=== PATIENT | female | born 1945 | race Caucasian/White ===

== ENCOUNTER 2023-08-01 13:47 | Outpatient (RCR) | payer MEDICARE, OTHER, SELFPAY | END 2023-08-01 23:59 | disposition home or self-care (01) | LOC: RPT 13:47 | PROVIDERS: ATTENDING PHYSICIAN Physical Medicine & Rehabilitation; PRIMARYCARE PHYSICIAN Internal Medicine | DX: S72.011D Unspecified intracapsular fracture of right femur, subsequent encounter for closed fracture with routine healing (principal); R26.2 Difficulty in walking, not elsewhere classified; Z96.641 Presence of right artificial hip joint; Z73.6 Limitation of activities due to disability | CPT/HCPCS: 97110; 97112; 97116; 97530 ==

== ENCOUNTER 2023-09-05 13:01 | Outpatient (RCR) | payer MEDICARE, OTHER, SELFPAY | END 2023-09-05 23:59 | disposition home or self-care (01) | LOC: RPT 13:01 | PROVIDERS: ATTENDING PHYSICIAN Physical Medicine & Rehabilitation; PRIMARYCARE PHYSICIAN Internal Medicine | DX: S72.011D Unspecified intracapsular fracture of right femur, subsequent encounter for closed fracture with routine healing (principal); R26.2 Difficulty in walking, not elsewhere classified; Z96.641 Presence of right artificial hip joint; Z73.6 Limitation of activities due to disability | CPT/HCPCS: 97110; 97112; 97116; 97530 ==

== ENCOUNTER → 2023-10-18 12:40 | Outpatient (REF) | payer MEDICARE, OTHER, SELFPAY | LOC: HWRAD 12:40 | PROVIDERS: ATTENDING PHYSICIAN Nurse Practitioner; FAMILY PHYSICIAN Family Medicine | DX: N39.0 Urinary tract infection, site not specified (principal) | CPT/HCPCS: 76770; 76856 ==

== ENCOUNTER → 2024-02-07 17:24 | Outpatient (REF) | payer MEDICARE, OTHER, SELFPAY ==
[2024-02-07 17:54] LABS: Urine Albumin Negative (Neg - Trace); Urine Bilirubin Negative (Negative); Urine Character Clear (Clear); Urine Color Yellow; Urine Glucose Negative (Negative); Urine Ketone Negative (Negative); Urine Leukocyte Negative (Negative); Urine Nitrite Negative (Negative); Urine Occult Blood Negative (Negative); Urine Specific Gravity 1.005 (<1.030); Urine Urobilinogen Negative (Neg - 1+)
== END ==
LOC: CLAB 17:24
PROVIDERS: ATTENDING PHYSICIAN Obstetrics & Gynecology
DX: N39.0 Urinary tract infection, site not specified (principal)
CPT/HCPCS: 36415; 81003; 87086

== ENCOUNTER → 2024-02-14 08:29 | Outpatient (REF) | payer MEDICARE, OTHER, SELFPAY | LOC: CLAB 08:29 | PROVIDERS: ATTENDING PHYSICIAN Obstetrics & Gynecology | DX: N39.0 Urinary tract infection, site not specified (principal) | CPT/HCPCS: 87086 ==

== ENCOUNTER → 2024-02-27 08:42 | Outpatient (REF) | payer MEDICARE, OTHER, SELFPAY | LOC: RAD 08:42 | PROVIDERS: ATTENDING PHYSICIAN Obstetrics & Gynecology; FAMILY PHYSICIAN Family Medicine | DX: R10.2 Pelvic and perineal pain (principal) | CPT/HCPCS: 76830; 76856 ==

== ENCOUNTER 2024-03-03 14:13 | Outpatient (RCR) | payer MEDICARE, OTHER, SELFPAY | END 2024-03-07 13:23 | disposition home or self-care (01) | LOC: RPT 14:13 | PROVIDERS: ATTENDING PHYSICIAN Family Medicine | DX: K59.09 Other constipation (principal); S72.001D Fracture of unspecified part of neck of right femur, subsequent encounter for closed fracture with routine healing (principal); E03.9 Hypothyroidism, unspecified; R26.89 Other abnormalities of gait and mobility; Z73.6 Limitation of activities due to disability | CPT/HCPCS: 36415; 84443; 97110; 97112; 97162 ==

== ENCOUNTER → 2024-03-10 07:51 | Outpatient (REF) | payer MEDICARE, OTHER, SELFPAY ==
[2024-03-10 10:06] LABS: % Basophils 0.8 % (0-2); % Eosinophils 2.7 % (0-6); % Immature Granulocytes 0.5 % (0-0.5); % Lymphocytes 15.6 % (20.5-51.1); % Monocytes 8.8 % (1.7-9.3); % Neutrophils 71.6 % (42.2-75.2); Absolute Basophils 0.1 10^3/uL (0-0.2); Absolute Eosinophils 0.2 10^3/uL (0-0.7); Absolute Monocytes 0.6 10^3/uL (0.1-0.6); Absolute Neutrophils 4.6 10^3/uL (1.4-6.5); Hemoglobin 12.7 g/dL (12.0-16.0); Mean Corp Hgb Conc. 33.4 g/dL (33.0-37.0); Mean Corpuscular Hgb 29.4 pg (27.0-31.0); Nucleated Red Blood Cells % 0 %; Platelet Count 172 10^3/uL (130-400); Red Blood Cell Count 4.32 10^6/uL (4.20-5.40); Red Cell Dist. Width 13.8 % (11.5-14.5); White Blood Cell Count 6.4 10^3/uL (4.8-10.8)
[2024-03-10 10:20] LABS: ALT (SGPT) 26 U/L (0-35); AST (SGOT) 36 U/L (14-36); Alkaline Phosphatase 82 U/L (38-126); Blood Urea Nitrogen 16 mg/dl (7-17); Calcium 9.6 mg/dl (8.4-10.2); Carbon Dioxide 30 mmol/L (22-30); Chloride 103 mmol/L (98-107); Glucose 92 mg/dl (70-99); HDL Cholesterol 65 mg/dl; Iron 99 ug/dl (37-170); LDL Cholesterol, Calculated 140 mg/dl; Potassium 4.1 mmol/L (3.5-5.1); Sodium 141 mmol/L (135-145); Total Bilirubin 0.9 mg/dl (0.2-1.3); Total Cholesterol 226 mg/dl (50-199); Total Protein 6.7 g/dl (6.3-8.2); Triglyceride 106 mg/dl (10-149); Very Low Density Lipoprotein 21 mg/dl (0-30); eGFR > 60.00
[2024-03-10 10:30] LABS: Percent Saturation 26 % (20-50); Total Iron Binding Capacity 374 ug/dl (265-497)
[2024-03-10 10:52] LABS: TSH Reflex To Free T4 2.11 uIU/ml (0.47-4.68)
[2024-03-10 10:55] LABS: Ferritin 23.5 ng/ml (11.1-264.0)
== END ==
LOC: REG 07:51
PROVIDERS: ATTENDING PHYSICIAN Family Medicine
DX: D50.9 Iron deficiency anemia, unspecified (principal); Z13.1 Encounter for screening for diabetes mellitus; Z13.6 Encounter for screening for cardiovascular disorders; Z13.29 Encounter for screening for other suspected endocrine disorder; E83.42 Hypomagnesemia; R06.89 Other abnormalities of breathing
CPT/HCPCS: 36415; 80053; 80061; 82728; 83540; 83550; 84443; 85025

== ENCOUNTER → 2024-03-23 15:09 | Outpatient (REF) | payer MEDICARE, OTHER, SELFPAY ==
[2024-03-23 16:46] LABS: ALT (SGPT) 27 U/L (0-35); AST (SGOT) 33 U/L (14-36); Alkaline Phosphatase 74 U/L (38-126); Blood Urea Nitrogen 26 mg/dl (7-17); Calcium 9.7 mg/dl (8.4-10.2); Carbon Dioxide 29 mmol/L (22-30); Chloride 102 mmol/L (98-107); Glucose 80 mg/dl (70-99); Potassium 4.3 mmol/L (3.5-5.1); Sodium 143 mmol/L (135-145); Total Bilirubin 0.7 mg/dl (0.2-1.3); Total Protein 6.6 g/dl (6.3-8.2); eGFR > 60.00
== END ==
LOC: REG 15:09
PROVIDERS: ATTENDING PHYSICIAN Internal Medicine Cardiovascular Disease; FAMILY PHYSICIAN Family Medicine
DX: I47.20 Ventricular tachycardia, unspecified (principal)
CPT/HCPCS: 36415; 80053

== ENCOUNTER 2024-03-25 11:53 | Outpatient (RCR) | payer MEDICARE, OTHER, SELFPAY | END 2024-03-25 23:59 | disposition home or self-care (01) | LOC: RPT 11:53 | PROVIDERS: ATTENDING PHYSICIAN Family Medicine | DX: R10.2 Pelvic and perineal pain (principal); Z73.6 Limitation of activities due to disability; M19.90 Unspecified osteoarthritis, unspecified site; Z87.440 Personal history of urinary (tract) infections | CPT/HCPCS: 97110; 97112; 97116 ==

== ENCOUNTER 2024-04-01 11:57 | Outpatient (RCR) | payer MEDICARE, OTHER, SELFPAY | END 2024-04-01 23:59 | disposition home or self-care (01) | LOC: RPT 11:57 | PROVIDERS: ATTENDING PHYSICIAN Obstetrics & Gynecology; FAMILY PHYSICIAN Family Medicine | DX: R10.2 Pelvic and perineal pain (principal); Z73.6 Limitation of activities due to disability; M62.81 Muscle weakness (generalized); Z87.440 Personal history of urinary (tract) infections | CPT/HCPCS: 97110; 97112; 97162; 97530 ==

== ENCOUNTER 2024-04-13 09:09 | Inpatient (IN) | payer MEDICARE, OTHER, SELFPAY ==
[2024-04-13] VITALS (9 sets, daily range): BP systolic 124–183; BP diastolic 72–97; BMI 25.8
--- NOTE | 2024-04-13 09:30 | PTCARENOTE ---
Pt arrived to unit, AOx3 no complaints of pain or discomfort. Assist x1 with cane. Oriented to room and unit. SB on tele monitor. Mali Santana NP at bedside. Call wiggins within reach.
--- NOTE | 2024-04-13 09:39 | W.PN.CD ---
Addendum entered and electronically signed by Gio Baird MD (Ellie) 04/13/24 13:52:
I saw and examined the patient.
The PACK WORKER's note was reviewed and I agree with the note.
Comment: 79 yo female with VT s/p DC [employer] ICD, HTN, RBBB, moderate mitral regurgitation and reduction in DLCO on Amiodarone, who is here for initiation of Sotalol. She feels well today other than headache in the setting of increased blood
pressure. She is now on lisinopril 10 mg daily for hypertension as an outpatient but prior to hip surgery last year, she was on lisinopril 40 mg daily and amlodipine. On exam she is hypertensive with blood pressure in the 150s to 160s over 70s to
80s; she reports that home blood pressures are 140 systolics. Cardiovascular exam notable for regular rate and rhythm with no murmurs rubs or gallops. Lungs are clear to auscultation bilaterally. No pedal edema. ECG shows sinus bradycardia with
first-degree AV block and a heart rate in the 50s, occasional PVCs, QTc 466 ms. Labs are pending.
In summary, this is a 79-year-old female with a history of VT and hypertension here for sotalol initiation. We will wait for her electrolytes to result from the lab and replete as needed. Once electrolytes are replete, she will get 1 dose of
sotalol 80 mg with ECG 2 hours after dose. If QT acceptable, we can initiate sotalol 80 mg twice daily. For her hypertension, blood pressures have been elevated here and she may need more antihypertensives given her previous requirement. For now,
continue home lisinopril 10 mg daily. If blood pressure remains elevated, will increase to lisinopril 20 mg daily tomorrow. Continue home propranolol 60 mg daily.
Original Note:
Today's Communication / Plan
-
initiate Sotalol and monitor on tele.
Impression / Plan
-
This is the H&P summary - full H&P scanned into her chart.
Mrs. Stinson is a 79 yo female with VT s/p DC [employer] ICD, HTN, RBBB, moderate mitral regurgitation and reduction in DLCO on Amiodarone, who is here for initiation of Sotalol. She stopped Amiodarone 100mg daily, [address] Nunez
recommended she stop Amiodarone due to reduced DLCO and other side effects from chronic Amiodarone (ambulatory/gait issues, eye and mentation issues). She reports feeling well and denies any cardiac complaints today.
VT - stable on chronic Amiodarone 100mg daily but with reduction in DLCO and other side effects from Amiodarone.
- plan to initiate Sotalol. she stopped Amiodarone 2 days ago as instructed by Dr. Nunez.
- check EKG now and after each Sotalol dose.
- check labs for appropriate Sotalol dosing.
- she has ICD in place.
- also on Propranolol ER 60mg daily, took it this am.
ICD - dual chamber, [employer].
- no discharges.
- followed in our outpatient device clinic.
HTN - chronic.
- she states her PCP started Lisinopril 10mg daily recently.
- will continue and monitor.
Mitral regurgitation - moderate on recent echo.
- no HF symptoms.
Physical Exam
Vital Signs/Labs
Vital Signs
Temp Resp BP Pulse Ox
97.7 F 20 159/78 98
04/13/24 09:29 04/13/24 09:29 04/13/24 09:24 04/13/24 09:29
04/12/24 04/13/24 04/14/24
06:59 06:59 06:59
Actual Weight 145 lb 11.609 oz
Physical Exam
Constitutional: No acute distress and Comfortable
EENT: Anicteric and Moist mucous membranes
Cardiovascular: Rhythm & rate is regular
Respiratory: Respiratory effort normal
GI: Soft, Non tender and Normal bowel sounds
Neuro/Psych: AO x 3
Other: Skin (warm, dry)
Data Reviewed
-
Date of Service: April 13, 2024
Medical Decision Making: Reviewed Test Results
EKG: Ordered by me
Echo: Report Reviewed by me
Labs: Labs Reviewed by me
Old Records: Reviewed
--- NOTE | 2024-04-13 11:13 | CM ---
Reviewed chart. Met with and Mrs. Stinson to review discharge plans. She states prior to admission she resides with her spouse in a one story home with one step to enter. She states prior to admission she ambulates with a rollator or single
point cane. She states she has a rollator and single point cane at home. She states she has a prescription plan and uses [facility]. Medical work-up in progress. The discharge plan is to return home with her spouse when medically stable.
[2024-04-13 12:00] LABS: Hematocrit 35.2 % (37.0-47.0); Hemoglobin 11.8 g/dL (12.0-16.0); Mean Corp Hgb Conc. 33.5 g/dL (33.0-37.0); Mean Corpuscular Hgb 29.1 pg (27.0-31.0); Mean Corpuscular Volume 86.9 fL (81.0-99.0); Mean Platelet Volume 11.3 fL (7.4-10.4); Platelet Count 155 10^3/uL (130-400); Red Blood Cell Count 4.05 10^6/uL (4.20-5.40); Red Cell Dist. Width 13.6 % (11.5-14.5); White Blood Cell Count 6.4 10^3/uL (4.8-10.8)
[2024-04-13] MEDS: TYLENOL 650 MG PO (13:35)
[2024-04-13 14:14] LABS: Blood Urea Nitrogen 18 mg/dl (7-17); Calcium 8.9 mg/dl (8.4-10.2); Carbon Dioxide 27 mmol/L (22-30); Chloride 105 mmol/L (98-107); Estimated Creatinine Clearance 63 ml/min; Glucose 107 mg/dl (70-99); Potassium 3.3 mmol/L (3.5-5.1); Sodium 142 mmol/L (135-145); eGFR > 60.00
[2024-04-13] MEDS: ZESTRIL 10 MG PO (14:25)
[2024-04-13] MEDS: KCL 40 MEQ PO (15:07)
[2024-04-13] MEDS: BETAPACE 80 MG PO (16:27)
[2024-04-13] MEDS: LOVENOX 40 MG SC (17:12)
[2024-04-13] MEDS: HIPREX 1 GRAM PO (20:01)
--- NOTE | 2024-04-13 20:48 | PTCARENOTE ---
Pt. received at change of shift. Pt. seen and assessed in room. at the pt's bedside. Pt. AOx3, VS WNL. No complaints of pain at this time. RN educates patient on plan of care, pt. verbalizes understanding. Call wiggins within reach. Continuing
to monitor at this time.
[2024-04-14] VITALS (7 sets, daily range): BP systolic 140–176; BP diastolic 75–105; BMI 25.8
--- NOTE | 2024-04-14 07:54 | W.PN.CD ---
Today's Communication / Plan
-
- Stop Propranolol
- Continue loading with Sotalol 80 mg BID
- Can program the ICD to pace atrially faster to shorten the QTc if needed.
Impression / Plan
-
This is the H&P summary - full H&P scanned into her chart.
Mrs. Stinson is a 79 yo female with VT s/p DC [employer] ICD, HTN, RBBB, moderate mitral regurgitation and reduction in DLCO on Amiodarone, who is here for initiation of Sotalol. She stopped Amiodarone 100mg daily, [address] Nunez
recommended she stop Amiodarone due to reduced DLCO and other side effects from chronic Amiodarone (ambulatory/gait issues, eye and mentation issues).
VT - stable on chronic Amiodarone 100mg daily but with reduction in DLCO and other side effects from Amiodarone.
- plan to initiate Sotalol. she stopped Amiodarone 2 days ago prior to hospitalization.
- check EKG now and after each Sotalol dose.
- check labs for appropriate Sotalol dosing.
- she has ICD in place - dual chamber
- Will stop Propranolol ER 60mg - Will replace with Sotalol 80 mg BID
- First dose given on 04/13/24 - EKG post sotalol is stable.
- On Lexapro - 5 mg - Maintenance dose. Will continue. Any increase in dose would need EKG monitoring
ICD - dual chamber, [employer].
- no discharges.
- followed in our outpatient device clinic.
HTN - chronic.
- she states her PCP started Lisinopril 10mg daily recently.
- will continue and monitor.
Mitral regurgitation - moderate on recent echo.
- no HF symptoms.
Physical Exam
Vital Signs/Labs
Vital Signs
Temp Pulse Resp BP Pulse Ox
97.6 F 59 16 140/88 97
04/14/24 04:11 04/14/24 04:11 04/14/24 04:11 04/14/24 04:11 04/14/24 04:11
04/13/24 04/14/24 04/15/24
06:59 06:59 06:59
Actual Weight 66.1 kg
04/13/24 11:32
04/13/24 13:23
Physical Exam
Constitutional: No acute distress and Comfortable
EENT: Anicteric and Moist mucous membranes
Cardiovascular: Rhythm & rate is regular, Pedal edema is absent and JVD pressure is normal
Respiratory: Respiratory effort normal, Lungs clear to auscul., Wheeze Absent and Crackles Absent
GI: Soft, Distention absent, Non tender and Normal bowel sounds
Neuro/Psych: Alert, Oriented and AO x 3
Data Reviewed
-
Date of Service: April 14, 2024
Medical Decision Making: Reviewed Test Results, Tests Ordered, Independent Historian Assessment, Test Interpretation and Review of Case with other Provider
EKG: Tracing Personally Visualized and interpreted
Echo: Report Reviewed by me
Labs: Labs Reviewed by me
Old Records: Reviewed
[2024-04-14] MEDS: LEXAPRO 5 MG PO (08:15)
[2024-04-14] MEDS: ZESTRIL 20 MG PO (08:15)
[2024-04-14] MEDS: HIPREX 1 GRAM PO ×2 (08:15→19:13)
[2024-04-14] MEDS: BETAPACE 80 MG PO ×2 (08:57→19:13)
--- NOTE | 2024-04-14 10:24 | PTCARENOTE ---
Sotalol dose #2 given. EKG at 1100, VSS, call wiggins in reach
--- NOTE | 2024-04-14 12:32 | CM ---
Reviewed chart. Met with and Mrs. Stinson to review discharge plans. She states she is feeling about the same. Prior to admission she resides with her spouse in a one story home with one step to enter. Prior to admission she ambulates with a
rolling walker or single point cane. She has a prescripton plan and uses [facility]. Medical work-up in progress. The discharge plan is to return home with her spouse when medically stable.
[2024-04-14] MEDS: LOVENOX 40 MG SC (17:48)
--- NOTE | 2024-04-14 21:07 | PTCARENOTE ---
Pt. received at change of shift. Pt. seen and assessed in room with at bedside. AOx3, tele reading sinus derek with underlying AV pacing. Patient with no complaints at this time. 3rd does of sotalol administered, awaiting to do EKG post
administration. RN explained plan of care to patient. Pt. verbalizes understanding of care. Call wiggins within reach. Continuing to monitor at this time.
[2024-04-15] VITALS (7 sets, daily range): BP systolic 131–174; BP diastolic 63–92; BMI 25.8
[2024-04-15] MEDS: LEXAPRO 5 MG PO (07:50)
[2024-04-15] MEDS: HIPREX 1 GRAM PO ×2 (07:50→19:26)
[2024-04-15] MEDS: ZESTRIL 20 MG PO (07:51)
[2024-04-15] MEDS: BETAPACE 80 MG PO ×2 (07:51→19:57)
--- NOTE | 2024-04-15 09:15 | W.PN.CD ---
Today's Communication / Plan
-
2 more doses of Sotalol prior to discharge
Continue Sotalol 80mg BID. ECG stable.
Impression / Plan
-
This is the H&P summary - full H&P scanned into her chart.
Mrs. Stinson is a 79 yo female with VT s/p DC [employer] ICD, HTN, RBBB, moderate mitral regurgitation and reduction in DLCO on Amiodarone, who is here for initiation of Sotalol. She stopped Amiodarone 100mg daily, [address] Nunez
recommended she stop Amiodarone due to reduced DLCO and other side effects from chronic Amiodarone (ambulatory/gait issues, eye and mentation issues).
VT - stable on chronic Amiodarone 100mg daily but with reduction in DLCO and other side effects from Amiodarone.
- plan to initiate Sotalol. she stopped Amiodarone 2 days ago prior to hospitalization.
- check EKG now and after each Sotalol dose.
- check labs for appropriate Sotalol dosing.
- she has ICD in place - dual chamber
- Will stop Propranolol ER 60mg - Will replace with Sotalol 80 mg BID
- First dose given on 04/13/24 - EKG post sotalol is stable.
- On Lexapro - 5 mg - Maintenance dose. Will continue. Any increase in dose would need EKG monitoring
ICD - dual chamber, [employer].
- no discharges.
- followed in our outpatient device clinic.
HTN - chronic.
- she states her PCP started Lisinopril 10mg daily recently.
- will continue and monitor.
Mitral regurgitation - moderate on recent echo.
- no HF symptoms.
Subjective: Feels well. Has headache and slightly dizziness for a short time after she takes Sotalol. Otherwise no new complaints
Physical Exam
Vital Signs/Labs
Vital Signs
Temp Pulse Resp BP Pulse Ox
97.7 F 56 18 167/92 95
04/15/24 08:00 04/15/24 08:30 04/15/24 08:00 04/15/24 07:51 04/15/24 08:00
04/14/24 04/15/24 04/16/24
06:59 06:59 06:59
Actual Weight 66.1 kg 66 kg
04/13/24 11:32
04/13/24 13:23
Physical Exam
Constitutional: No acute distress and Comfortable
Cardiovascular: Rhythm & rate is regular, Pedal edema is absent, JVD pressure is normal and Murmur/rub/gallop absent
Respiratory: Respiratory effort normal and Lungs clear to auscul.
Data Reviewed
-
Date of Service: April 15, 2024
Medical Decision Making: Reviewed Test Results, Tests Ordered, Independent Historian Assessment, Test Interpretation and Review of Case with other Provider
EKG: Tracing Personally Visualized and interpreted
Echo: Report Reviewed by me
Labs: Labs Reviewed by me
Old Records: Reviewed
--- NOTE | 2024-04-15 09:40 | PTCARENOTE ---
Rec'd pt this shift awake and alert in bed. Pt V-paced on monitor. RA. AM meds given. Pt denies pain, denies sob. See worklist for VS/I and O and assessments.
--- NOTE | 2024-04-15 10:16 | PTCARENOTE ---
Dr. Nunez notified of QT results two hour post 4th dose of Sotolol.
--- NOTE | 2024-04-15 10:28 | CM ---
Reviewed chart. Met with Mrs. Stinson to review discharge plans. She states she maybe able to go home soon. She sates she is feeling very cold today. Prior to admission she resides with her spouse in a one story home with one step to enter. Prior
to admission she ambulates with a single point cane or walker. She has a prescription plan and uses [facility]. Medical work-up in progress. The discharge plan is to return home with her spouse when medically stable.
[2024-04-15] MEDS: TYLENOL 650 MG PO (11:27)
--- NOTE | 2024-04-15 12:43 | PTCARENOTE ---
Pt c/o H/A. Tylenol given. BP improved and H/A improved after Tylenol given. Dr. Baird notified and aware.
--- NOTE | 2024-04-15 13:39 | PTCARENOTE ---
Dr. Baird notified of H/A and pt c/o chills and just not feeling right. Covid and Flu sent.
[2024-04-15 13:52] LABS: COVID-19 Antigen Negative (Negative)
[2024-04-15] MEDS: LOVENOX 40 MG SC (16:23)
--- NOTE | 2024-04-15 23:32 | PTCARENOTE ---
Pt received start of shift. HR SB/SR w/ 1st degree AV block, occasional a-pacing, and BBB. Pt w/ family at bedside. Reinforced purpose of sotalol and why we are checking EKG after dose. Pt states understanding. Sotalol dose #5 administered, QTc 533.
[2024-04-16] VITALS (12 sets, daily range): BP systolic 122–201; BP diastolic 75–107; BMI 25.6
--- NOTE | 2024-04-16 07:34 | W.PN.CD ---
Today's Communication / Plan
-
- Replace K and recheck.
- Keep telemetry overnight.
Impression / Plan
-
This is the H&P summary - full H&P scanned into her chart.
Mrs. Stinson is a 79 yo female with VT s/p DC [employer] ICD, HTN, RBBB, moderate mitral regurgitation and reduction in DLCO on Amiodarone, who is here for initiation of Sotalol. She stopped Amiodarone 100mg daily, [address] Nunez
recommended she stop Amiodarone due to reduced DLCO and other side effects from chronic Amiodarone (ambulatory/gait issues, eye and mentation issues).
VT - stable on chronic Amiodarone 100mg daily but with reduction in DLCO and other side effects from Amiodarone.
- Continue loading Sotalol. she stopped Amiodarone 2 days ago prior to hospitalization.
- check EKG now and after each Sotalol dose.
- check labs for appropriate Sotalol dosing. Hypokalemia - replace and recheck lytes.
- she has ICD in place - dual chamber
- Stopped Propranolol ER 60mg and Amiodarone - replaced with Sotalol 80 mg BID
- First dose given on 04/13/24 - EKG post sotalol is stable.
- On Lexapro - 5 mg - Maintenance dose. Will continue. Any increase in dose would need EKG monitoring
- Prolonged QTc is due to Hypokalemia and u wave - replace K and repeat K/
- Keep overnight for K replacement.
ICD - dual chamber, [employer].
- no discharges.
- followed in our outpatient device clinic.
HTN - chronic.
- she states her PCP started Lisinopril 10mg daily recently.
- will continue and monitor.
Mitral regurgitation - moderate on recent echo.
- no HF symptoms.
Subjective: Feels well. Otherwise no new complaints.
Physical Exam
Vital Signs/Labs
Vital Signs
Temp Pulse Resp BP Pulse Ox
98.6 F 59 16 158/97 96
04/16/24 03:58 04/16/24 03:58 04/16/24 03:58 04/16/24 03:58 04/16/24 03:58
04/15/24 04/16/24 04/17/24
06:59 06:59 06:59
Actual Weight 66 kg 65.5 kg
04/13/24 11:32
Physical Exam
Constitutional: No acute distress and Comfortable
EENT: Anicteric and Moist mucous membranes
Cardiovascular: Rhythm & rate is regular, Pedal edema is absent, JVD pressure is normal and Systolic murmur absent
Respiratory: Respiratory effort normal, Lungs clear to auscul., Wheeze Absent and Crackles Absent
GI: Soft, Flat, Non tender and Normal bowel sounds
Neuro/Psych: Alert, Oriented and AO x 3
Other: Cardiac Device Site
Data Reviewed
-
Date of Service: April 16, 2024
Medical Decision Making: Reviewed Test Results, Tests Ordered, Independent Historian Assessment, Test Interpretation and Review of Case with other Provider
EKG: Tracing Personally Visualized and interpreted
Echo: Report Reviewed by me
Labs: Labs Reviewed by me
Old Records: Reviewed
[2024-04-16] MEDS: KCL 40 MEQ PO ×2 (07:41→20:24)
[2024-04-16] MEDS: ZESTRIL 20 MG PO (07:42)
[2024-04-16] MEDS: LEXAPRO 5 MG PO (07:42)
[2024-04-16] MEDS: BETAPACE 80 MG PO ×2 (07:42→20:24)
[2024-04-16] MEDS: HIPREX 1 GRAM PO ×2 (07:42→20:24)
--- NOTE | 2024-04-16 08:00 | PTCARENOTE ---
Patient with no complaints this morning. Left IV site tender and swollen, warm compress applied and IV removed. BMP collected, 40 MEQ of K-DUR PO given, call wiggins in reach
[2024-04-16] MEDS: KCL PO (08:40)
[2024-04-16 10:29] LABS: Blood Urea Nitrogen 14 mg/dl (7-17); Calcium 9.1 mg/dl (8.4-10.2); Carbon Dioxide 28 mmol/L (22-30); Chloride 104 mmol/L (98-107); Estimated Creatinine Clearance 63 ml/min; Glucose 93 mg/dl (70-99); Potassium 4.1 mmol/L (3.5-5.1); Sodium 140 mmol/L (135-145); eGFR > 60.00
--- NOTE | 2024-04-16 15:47 | PTCARENOTE ---
Patient comfortable, resting in bed, awakens easily. Warm compress applied to left forearm. New IV placed in right forearm. VSS, call wiggins in reach
[2024-04-16] MEDS: LOVENOX 40 MG SC (17:44)
[2024-04-16] MEDS: APRESOLINE 5 MG IV (23:07)
--- NOTE | 2024-04-17 00:30 | PTCARENOTE ---
Pt received start of shift, HR SR 1st degree AV block + occasional a-pacing + BBB + PVCs + Prolonged QT. 7th dose of sotalol administered to pt.
Pt BP elevated SBP 180-200. Spoke w/ CV NETWORK TECHNOLOGY INSTRUCTOR Moises 5mg hydralazine IV administered. SBP 163/94.
[2024-04-17 02:09] VITALS: BP 164/101
[2024-04-17 03:16] LABS: Blood Urea Nitrogen 14 mg/dl (7-17); Calcium 9.4 mg/dl (8.4-10.2); Carbon Dioxide 24 mmol/L (22-30); Chloride 107 mmol/L (98-107); Estimated Creatinine Clearance 63 ml/min; Glucose 109 mg/dl (70-99); Potassium 4.9 mmol/L (3.5-5.1); Sodium 142 mmol/L (135-145); eGFR > 60.00
[2024-04-17 07:24] VITALS: BP 143/72
[2024-04-17 07:53] VITALS: BP 183/86
[2024-04-17] MEDS: ZESTRIL 20 MG PO (07:58)
[2024-04-17] MEDS: BETAPACE 80 MG PO (07:58)
[2024-04-17] MEDS: HIPREX 1 GRAM PO (07:58)
[2024-04-17] MEDS: LEXAPRO 5 MG PO (07:59)
[2024-04-17] MEDS: NORVASC 5 MG PO (08:53)
--- NOTE | 2024-04-17 09:12 | W.PN.CD ---
Today's Communication / Plan
-
- Patient received 6th dose of sotalol last evening, and EKGs have been stable; received 7th dose this a.m.--check EKG 2 hours post, then discharge to home.
-Will add Norvasc 5 mg daily and continue to manage as outpatient.
Impression / Plan
-
This is the H&P summary - full H&P scanned into her chart.
Mrs. Stinson is a 79 yo female with VT s/p DC [employer] ICD, HTN, RBBB, moderate mitral regurgitation and reduction in DLCO on Amiodarone, who is here for initiation of Sotalol. She stopped Amiodarone 100mg daily, [address] Nunez
recommended she stop Amiodarone due to reduced DLCO and other side effects from chronic Amiodarone (ambulatory/gait issues, eye and mentation issues).
VT - stable on chronic Amiodarone 100mg daily but with reduction in DLCO and other side effects from Amiodarone.
- Continue loading Sotalol. she stopped Amiodarone 2 days ago prior to hospitalization.
- she has ICD in place - dual chamber
- Stopped Propranolol ER 60mg and Amiodarone - replaced with Sotalol 80 mg BID
- First dose given on 04/13/24 - EKG post sotalol is stable.
- On Lexapro - 5 mg - Maintenance dose. Will continue. Any increase in dose would need EKG monitoring
- Prolonged QTc was due to Hypokalemia and u wave - replaced K+.
- Patient received 6th dose of sotalol last evening, and EKGs have been stable; received 7th dose this a.m.--check EKG 2 hours post, then discharge to home.
ICD - dual chamber, [employer].
- no discharges.
- followed in our outpatient device clinic.
HTN - chronic.
-Blood pressure has been suboptimally controlled.
-Continue lisinopril 20 mg daily.
-Will add Norvasc 5 mg daily and continue to manage as outpatient.
Mitral regurgitation - moderate on recent echo.
- no HF symptoms.
Subjective: No major events overnight. No cardiac complaints this a.m.
Physical Exam
Vital Signs/Labs
Vital Signs
Temp Pulse Resp BP Pulse Ox
98.5 F 59 20 183/86 97
04/17/24 07:53 04/17/24 08:00 04/17/24 07:53 04/17/24 07:53 04/17/24 07:53
04/16/24 04/17/24 04/18/24
06:59 06:59 06:59
Actual Weight 65.5 kg
04/13/24 11:32
04/17/24 02:39
Physical Exam
Constitutional: No acute distress and Comfortable
EENT: Anicteric
Cardiovascular: Rhythm & rate is regular, Pedal edema is absent, Systolic murmur absent and S1S2 is normal
Respiratory: Respiratory effort normal and Lungs clear to auscul.
GI: Soft
Neuro/Psych: AO x 3
Other: Skin (Warm, dry, intact)
Data Reviewed
-
Date of Service: April 17, 2024
EKG: Tracing Personally Visualized and interpreted (Telemetry: Sinus rhythm, PACs)
Labs: Labs Reviewed by me
[2024-04-17] MEDS: KCL PO (09:51)
[2024-04-17 10:17] VITALS: BP 99/64
[2024-04-17 10:18] VITALS: BP 104/62
[2024-04-17 10:19] VITALS: BP 107/96
--- NOTE | 2024-04-17 10:31 | CM ---
Reviewed chart. Met with and Mrs. Stinson to review discharge plans. She states she is feeling better and maybe able to go home soon. We reviewed [facility] and she is declining services at this time. Prior to admission she resides with her
spouse in a one story home with one step to enter. Prior to admission she uses a waker or single point cane to ambulate. She has a walker and single point cane at home. She has a prescription plan and uses [facility] . Medical work-up in
progress. The discharge plan is to return home with her spouse when medically stable.
--- NOTE | 2024-04-17 11:14 | W.DS.TRANS ---
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
-
Discharge Instructions:
Discharge Diagnosis/Procedures Sotalol initiation for management of ventricular
tachycardia
Diet 2 Gram Sodium
Activity As tolerated
Driving Restrictions As prior to admission
Bathing Restrictions OK to Shower
Blood Work BMP in one week
Instructions:
Stand-Alone Forms:
Changes to Home Medications: Yes
Discharge Medications:
DC Medications w/original date entered in [facility]
cranberry 500 mg capsule 500 mg PO DAILY Supplement 02/22/23
escitalopram oxalate 5 mg/5 mL oral solution 5 mg (5 mL) PO DAILY Mental Health/Anxiety #30 mL 03/08/23
methenamine hippurate 1 gram tablet 1 g PO BID 04/13/24
amlodipine 5 mg tablet 5 mg PO DAILY #30 tabs 04/17/24
lisinopril 20 mg tablet 20 mg PO DAILY #30 tabs 04/17/24
potassium chloride 20 mEq tablet,extended release 40 meq (2 x 20 mEq) PO DAILY #60 tabs 04/17/24
sotalol 80 mg tablet 80 mg PO Q12H #60 tabs 04/17/24
Home Medication Changes
Lisinopril was increased to 20mg daily.
Sotalol, Norvasc and KCL are new.
Propranolol was stopped.
Pending Results: No
== END 2024-04-17 13:15 | disposition home or self-care (01) | DRG 310 ==
LOC: IVU 09:09
PROVIDERS: Student in an Organized Health Care Education/Training Program; ADMITTING PHYSICIAN Internal Medicine Cardiovascular Disease
DX: I47.20 Ventricular tachycardia, unspecified (principal); I10 Essential (primary) hypertension; I34.0 Nonrheumatic mitral (valve) insufficiency; Z11.52 Encounter for screening for COVID-19
CPT/HCPCS: 80048; 85027; 87502; 87811; 93005

== ENCOUNTER → 2024-04-23 07:13 | Outpatient (REF) | payer MEDICARE, OTHER, SELFPAY ==
[2024-04-23 10:37] LABS: Blood Urea Nitrogen 22 mg/dl (7-17); Calcium 9.3 mg/dl (8.4-10.2); Carbon Dioxide 28 mmol/L (22-30); Chloride 102 mmol/L (98-107); Glucose 80 mg/dl (70-99); Potassium 4.3 mmol/L (3.5-5.1); Sodium 144 mmol/L (135-145); eGFR > 60.00
== END ==
LOC: REG 07:13
PROVIDERS: ATTENDING PHYSICIAN Nurse Practitioner; FAMILY PHYSICIAN Family Medicine
DX: E87.6 Hypokalemia (principal)
CPT/HCPCS: 36415; 80048

== ENCOUNTER 2024-05-04 12:47 | Outpatient (RCR) | payer MEDICARE, OTHER, SELFPAY | END 2024-05-04 23:59 | disposition home or self-care (01) | LOC: RPT 12:47 | PROVIDERS: ATTENDING PHYSICIAN Family Medicine | DX: S72.001D Fracture of unspecified part of neck of right femur, subsequent encounter for closed fracture with routine healing (principal); K59.09 Other constipation (principal); Z73.6 Limitation of activities due to disability; E03.9 Hypothyroidism, unspecified | CPT/HCPCS: 97110; 97112; 97164; 97530 ==

== ENCOUNTER → 2024-05-20 11:15 | Outpatient (REF) | payer MEDICARE, OTHER, SELFPAY | LOC: RCS 11:15 | PROVIDERS: ATTENDING PHYSICIAN Nurse Practitioner; FAMILY PHYSICIAN Family Medicine | DX: I47.20 Ventricular tachycardia, unspecified (principal); E87.6 Hypokalemia; I10 Essential (primary) hypertension; I34.0 Nonrheumatic mitral (valve) insufficiency | CPT/HCPCS: 93306 ==

== ENCOUNTER → 2024-06-02 10:51 | Outpatient (REF) | payer MEDICARE, OTHER, SELFPAY ==
[2024-06-02 13:06] LABS: Blood Urea Nitrogen 18 mg/dl (7-17); Calcium 9.5 mg/dl (8.4-10.2); Carbon Dioxide 30 mmol/L (22-30); Chloride 103 mmol/L (98-107); Glucose 71 mg/dl (70-99); Magnesium 2.1 mg/dl (1.6-2.3); Sodium 142 mmol/L (135-145); eGFR > 60.00
[2024-06-02 13:12] LABS: Potassium 4.7 mmol/L (3.5-5.1)
== END ==
LOC: REG 10:51
PROVIDERS: ATTENDING PHYSICIAN Nurse Practitioner; FAMILY PHYSICIAN Family Medicine
DX: I47.20 Ventricular tachycardia, unspecified (principal); E87.6 Hypokalemia; I10 Essential (primary) hypertension
CPT/HCPCS: 36415; 80048; 83735

== ENCOUNTER → 2024-07-04 08:12 | Outpatient (REF) | payer MEDICARE, OTHER, SELFPAY ==
[2024-07-04 09:34] LABS: ALT (SGPT) 31 U/L (0-35); AST (SGOT) 37 U/L (14-36); Albumin 3.9 g/dl (3.5-5.0); Alkaline Phosphatase 70 U/L (38-126); Blood Urea Nitrogen 22 mg/dl (7-17); Calcium 9.1 mg/dl (8.4-10.2); Carbon Dioxide 31 mmol/L (22-30); Chloride 101 mmol/L (98-107); Glucose 90 mg/dl (70-99); HDL Cholesterol 66 mg/dl; LDL Cholesterol, Calculated 142 mg/dl; Potassium 3.7 mmol/L (3.5-5.1); Sodium 138 mmol/L (135-145); Total Bilirubin 0.7 mg/dl (0.2-1.3); Total Cholesterol 230 mg/dl (50-199); Total Protein 6.5 g/dl (6.3-8.2); Triglyceride 110 mg/dl (10-149); Very Low Density Lipoprotein 22 mg/dl (0-30); eGFR > 60.00
[2024-07-04 09:39] LABS: % Basophils 0.2 % (0-2); % Eosinophils 3.9 % (0-6); % Immature Granulocytes 0.4 % (0-0.5); % Lymphocytes 19.8 % (20.5-51.1); % Monocytes 9.5 % (1.7-9.3); % Neutrophils 66.2 % (42.2-75.2); Absolute Eosinophils 0.2 10^3/uL (0-0.7); Absolute Monocytes 0.5 10^3/uL (0.1-0.6); Absolute Neutrophils 3.4 10^3/uL (1.4-6.5); Hematocrit 39.5 % (37.0-47.0); Hemoglobin 13.1 g/dL (12.0-16.0); Mean Corp Hgb Conc. 33.2 g/dL (33.0-37.0); Mean Corpuscular Volume 90.6 fL (81.0-99.0); Mean Platelet Volume 11.2 fL (7.4-10.4); Nucleated Red Blood Cells % 0 %; Platelet Count 129 10^3/uL (130-400); Red Blood Cell Count 4.36 10^6/uL (4.20-5.40); Red Cell Dist. Width 13.4 % (11.5-14.5); White Blood Cell Count 5.2 10^3/uL (4.8-10.8)
[2024-07-04 10:08] LABS: Ferritin 29.3 ng/ml (11.1-264.0)
== END ==
LOC: REG 08:12
PROVIDERS: ATTENDING PHYSICIAN Family Medicine
DX: E78.2 Mixed hyperlipidemia (principal); D50.9 Iron deficiency anemia, unspecified; E83.42 Hypomagnesemia
CPT/HCPCS: 36415; 80053; 80061; 82728; 83735; 85025

== ENCOUNTER 2024-08-19 13:56 | Emergency (ER) | payer MEDICARE, OTHER, SELFPAY ==
[2024-08-19 13:58] VITALS: BP 151/77
[2024-08-19 14:03] VITALS: BP 151/77
[2024-08-19 14:19] LABS: % Basophils 0.8 % (0-2); % Eosinophils 2.9 % (0-6); % Immature Granulocytes 0.2 % (0-0.5); % Lymphocytes 19.4 % (20.5-51.1); % Monocytes 10.2 % (1.7-9.3); % Neutrophils 66.5 % (42.2-75.2); Absolute Basophils 0.1 10^3/uL (0-0.2); Absolute Eosinophils 0.2 10^3/uL (0-0.7); Absolute Lymphocytes 1.3 10^3/uL (1.2-3.4); Absolute Monocytes 0.7 10^3/uL (0.1-0.6); Absolute Neutrophils 4.4 10^3/uL (1.4-6.5); Hematocrit 37.5 % (37.0-47.0); Hemoglobin 12.9 g/dL (12.0-16.0); Mean Corp Hgb Conc. 34.4 g/dL (33.0-37.0); Mean Corpuscular Hgb 31.2 pg (27.0-31.0); Mean Corpuscular Volume 90.8 fL (81.0-99.0); Mean Platelet Volume 10.9 fL (7.4-10.4); Nucleated Red Blood Cells % 0 %; Platelet Count 141 10^3/uL (130-400); Red Blood Cell Count 4.13 10^6/uL (4.20-5.40); Red Cell Dist. Width 13.6 % (11.5-14.5); White Blood Cell Count 6.7 10^3/uL (4.8-10.8)
[2024-08-19 14:41] LABS: ALT (SGPT) 29 U/L (0-35); AST (SGOT) 31 U/L (14-36); Albumin 3.7 g/dl (3.5-5.0); Alkaline Phosphatase 71 U/L (38-126); Blood Urea Nitrogen 20 mg/dl (7-17); Calcium 8.8 mg/dl (8.4-10.2); Carbon Dioxide 27 mmol/L (22-30); Chloride 106 mmol/L (98-107); Glucose 83 mg/dl (70-99); Sodium 138 mmol/L (135-145); Total Bilirubin 0.8 mg/dl (0.2-1.3); Total Protein 6.3 g/dl (6.3-8.2); eGFR > 60.00
--- NOTE | 2024-08-19 15:59 | ED.GENMED ---
History of Present Illness
General
Chief Complaint: Gait Dysfunction
Source: patient
Exam Limitations: none
Time Seen by Provider: 08/19/24 15:32
Nursing documentation reviewed up to this point in time: agreed with
History of Present Illness
History of Present Illness:
79 y/o F with h/o VTACH s/p pacer/ICD, htn, hld ,chronic dizziness/vestibular dysfunction
here for poor balance, mild headache, fatigue thi smorning
pt says that 1 year ago she broke her R hip, had ORIF
chronically even since having PT last charlie, she has had balance problems
sometime ago she got diagnosed with vestibular dysfunction and has seen ENT and done vestibular therapy which really hasn't helped her balance much
she ahs appt to see a new neurologist next week for this
yesterday went to the eye doctor and they tried to take photo of her R eye for glaucoma(it went smoothly on the L eye but wouldn't work on the R ee) and she had a light in it directly several times, flashes but didn't seem bothered by it
she isn'tsure if this did anythin to her
she woke up at 2 am calling out, but wasn't sure why; didn't get defibrillated
she went back to sleep until 9 and after she woke up she felt more off balance; needed to hold on momre than usual, was slower than usual
had mild dull posterior headache and took advil 08/17
she had no vision changges
also has some nasal congestion
no fever/chills, chest pain, shortness of breath, vomiting, diarrhea, focal weakness, slurred speech,, confusion, room spinnning dizziness, hearing loss
has been told she may hav eahd a n old stroke previously on a very remote CT scan (2007)
had intolerance/balance issues/vision changes while on amioand was started on sotalol in 04/2024
she has not had any new med changes
Past History
Past History
ED Past Medical History: Arrthythmia, HTN, Other (Anemia, osteoarthritis) and Other (Cardiomyopathy, Stella's thyroiditis)
ED Past Surgical History: Cardiac (AICD)
Social History
Tobacco: Non-smoker
Alcohol: None
Drug: None
Personal:
Living: with family
Employment: Retired
Family History
Family History: Other (Mother had lung cancer)
Review of Systems
Review of Systems
Allergies reviewed?: Yes
All Other Systems: Not applicable
Phy Exam
Physical Exam
Physical Exam:
GENERAL: Alert , in no apparent distress, nontoxic
HEAD: NCAT
EYE: pupils equal and reactive, no nystagmus, no photophobia
NECK: Supple,full rom, nontender
ENT: o/p clr, mmm.
CARDIAC: Regular rate and rhythm . no edema
LUNGS: Clear breath sounds bilaterally, no acute respiratory distress, no wheezes/rales/rhonchi
ABDOMEN: Soft, without focal tenderness, no r/g, no cvat
NEUROLOGICAL: Alert and orientedx 4, cn intact, no facial asymmetry, 5/5 strength in UE/LE, sensation intact, romberg neg, ambulates without assistance, neg pronator drift
SKIN: Warm and dry, skin intact.
MUSCULOSKELETAL: No edema, well perfused.
PSYCH: Normal and appropriate interaction.
Course
Orders/Labs/Results
Orders:
Orders
08/19/24 14:04
Electrocardiogram (*1) Urgent
Reason for Study: Abdominal Pain
EKG- Treatment ONCE
08/19/24 14:06
CT Head W/o Iv Contrast Urgent
Comment:
Reason For Exam: difficulties walking
08/19/24 14:08
Complete Blood Count/With Diff Urgent
Comprehensive Metabolic Panel Urgent
TSH Reflex To Free T4 Urgent
Comment: ADD ON
08/19/24 15:58
pacemaker [Interrogate Pacemaker- Treatment] ONCE
0.9% Sodium Chloride 1000 ml [Nss] 1,000 ml IV BOLUS
08/19/24 16:00
Add On- LAB Urgent
Tests Added?: tsh reflex t4
08/19/24 16:40
COVID-19 Antigen Urgent
Source: Nasal Swab
Influenza A+B Rapid Molecular Urgent
SASHA Source: Nasal Swab
Specimen Description:
Abnormal Lab Results
08/19/24
14:08
RBC 4.13 L 10^6/uL
(4.20-5.40)
MCH 31.2 H pg
(27.0-31.0)
MPV 10.9 H fL
(7.4-10.4)
Absolute Monos (auto) 0.7 H 10^3/uL
(0.1-0.6)
Lymphocytes % 19.4 L %
(20.5-51.1)
Monocytes % 10.2 H %
(1.7-9.3)
BUN 20 H mg/dl
(7-17)
08/19/24 14:08
08/19/24 14:08
Vital Signs
Initial and Last Documented VS:
Initial Vital Signs
Temp BP
36.7 C 151/77
08/19/24 13:58 08/19/24 13:58
Last Documented Vital Signs
Temp Pulse Resp BP Pulse Ox
36.7 C 62 20 171/89 100
08/19/24 13:58 08/19/24 18:31 08/19/24 14:03 08/19/24 18:31 08/19/24 18:31
MDM/Problems Addressed
Differential Diagnosis Includes:
orthostasis, dehydration, vertigo, stroke, covid
MDM/Problems Addressed:
79 y/o F
woke up this morning feeling a little wiped out, balance problems worse than baseline for which she is in PT
she doesnt' feel steady enough but usually isn' steady to begin with
she thinks she hasn't been drinkin enough fluids
pt had no med changes
she looks well, but maybe a little wiped out, but nontoxic
her orthostatics are positive
she was able to walk with her cane but takes slow delibeerate steps and feels more comfortable [place] and her
otherwise no neuro deficits
the eye exam yesterday seems to be unrelated
covid/flu neg
ekg not ischemic
labs bun mildly elevated
ct head show sposssible encephalomalacia which she has been told before but this is compared to 2020
pt was given IVF and got up to the bathroom twice with little difficulty and feels much better
suspect dehydration which could be also a viral syndrome induced
offered her admission for stroke w/u but she deinced
pacer interrogated
0 events, no shoks
ed attending dr. wen agree
DENIES URINARY SYPMTOMS.
*Critical Care Note
Total Time (30-74mins, 75-104mins- exclusive of procedures): Not Applicable
ED Attending Note
-
Portions of this chart may have been created with voice recognition software.� Occasional wrong word or��sound alike� substitutions may have occurred due to the inherent limitations of voice recognition software.
Discharge Plan
Departure
Patient Disposition: Home (Routine Discharge)
Date of Disposition: 08/19/24
Time of Disposition: 18:01
Patient with high blood pressure during this ER visit?: No
Condition: Fair
Covid-19: Not Applicable
Discharge Problem:
Dehydration, Orthostasis
Prescriptions:
No Action
cranberry 500 mg Capsule
500 mg PO DAILY
methenamine hippurate 1 gram Tablet
1 g PO BID
sotalol 80 mg Tablet
80 mg PO Q12H Qty: 60 2RF
lisinopril 20 mg Tablet
20 mg PO DAILY Qty: 30 1RF
amlodipine 5 mg Tablet
5 mg PO DAILY Qty: 30 1RF
potassium chloride 20 mEq tablet extended release
40 meq PO DAILY Qty: 60 1RF
escitalopram oxalate 5 mg/5 mL Solution
5 mg PO DAILY Qty: 30 0RF
Rx Instructions:
Pt says she takes liquid, dr first shows tablets
Referrals:
Avinash Ha Jr., DO [Family Provider] - Follow up in 2-3 days
Activity Restrictions/Additional Instructions:
YOU MAY HAVE BEEN A LITTLE DEHYDRATED WHICH CAUSED YOUR BALANCE PROBLEMS TO BE A LTITLE WORSE
WE GAVE YOU FLUIDS AND YOU FEEL BETTER
YOU ALSO COULD BE COMING DOWN WITH A VIRUS
TAKE IT EASY, REST, EAT WELL BALANCED MEALS AND STAY HYDRATED
FOLLOW UP WITH YOUR DOCTOR
RETURN FOR ANY WORSENING SYPMTOMS, FALLING, WORSE BALANCE PROBLEMS, HEADACHE, VOMITING, CONFUSION, WEAKNESS ETC
Interventions
Interventions:
*Risk Screen - Suicide Last Done: 08/19/24 13:58
*General Assessment Last Done: 08/19/24 13:58
*Neglect/Abuse Screening Last Done: 08/19/24 13:58
ED- Fall Risk Assessment Last Done: 08/19/24 18:30
*ED COVID-19 Vaccine History Last Done: 08/19/24 18:30
*Nursing Disposition Last Done: 08/19/24 18:31
ED- Neurological Assessment Last Done: 08/19/24 17:12
ED-Musculoskeletal Assessment Last Done: 08/19/24 17:12
Discharge Date and Time
Discharge Date/Time: 08/19/24 18:33
Print Language: LUXEMBOURGER
[2024-08-19 16:40] VITALS: BP 161/76
[2024-08-19] MEDS: NSS 1000 IV (17:11)
[2024-08-19 17:14] LABS: COVID-19 Antigen Negative (Negative)
[2024-08-19 17:29] LABS: TSH Reflex To Free T4 1.93 uIU/ml (0.47-4.68)
[2024-08-19 18:31] VITALS: BP 171/89
== END 2024-08-19 18:33 | disposition home or self-care (01) ==
LOC: EMR 13:56
PROVIDERS: Physician Assistant; EMERGENCY PHYSICIAN Emergency Medicine; FAMILY PHYSICIAN Family Medicine
DX: E86.0 Dehydration (principal); I47.20 Ventricular tachycardia, unspecified; I10 Essential (primary) hypertension; E78.00 Pure hypercholesterolemia, unspecified; E06.3 Autoimmune thyroiditis; Z80.1 Family history of malignant neoplasm of trachea, bronchus and lung; Z86.73 Personal history of transient ischemic attack (TIA), and cerebral infarction without residual deficits; Z95.810 Presence of automatic (implantable) cardiac defibrillator
CPT/HCPCS: 99284; 96360; 70450; 80053; 84443; 85025; 87502; 87811; 93005

== ENCOUNTER 2024-09-30 12:14 | Emergency (ER) | payer MEDICARE, OTHER, SELFPAY ==
[2024-09-30 12:15] VITALS: BP 163/94
[2024-09-30 13:00] VITALS: BMI 27.2
--- NOTE | 2024-09-30 14:00 | ED.GENMED ---
History of Present Illness
General
Chief Complaint: Bowel Problem
Source: patient
Exam Limitations: none
Time Seen by Provider: 09/30/24 12:56
History of Present Illness
History of Present Illness:
79-year-old female presents with lack of bowel movement for the past 5 days. She denies abdominal pain or vomiting. She has been using suppositories without relief. She tried a dose of MiraLAX and has been taking Metamucil. She has a
defibrillator. No chest pain or shortness of breath. No blood in the stool. No other complaint
Past History
Past History
ED Past Medical History: Arrthythmia, HTN, Other (Anemia, osteoarthritis) and Other (Cardiomyopathy, Stella's thyroiditis)
ED Past Surgical History: Cardiac (AICD)
Social History
Tobacco: Non-smoker
Alcohol: None
Drug: None
Personal:
Living: with family
Employment: Retired
Family History
Family History: Other (Mother had lung cancer)
Phy Exam
Physical Exam
Physical Exam:
General: Well-appearing female no acute respiratory distress
HEENT: Normocephalic atraumatic
Heart: Regular rate and rhythm
Lungs: Clear no wheeze
Abdomen is soft nontender nondistended no guarding rebound normal bowel sounds
Rectal exam: Performed with female nurse, Ashwini, as a block breaker in the room. No stool in the rectal vault.
Extremities: No cyanosis
Course
Vital Signs
Initial and Last Documented VS:
Initial Vital Signs
Temp Pulse Resp BP Pulse Ox
98.5 F 69 18 163/94 97
09/30/24 12:15 09/30/24 12:15 09/30/24 12:15 09/30/24 12:15 09/30/24 12:15
Last Documented Vital Signs
Temp Pulse Resp BP Pulse Ox
98.5 F 69 18 163/94 97
09/30/24 12:15 09/30/24 12:15 09/30/24 12:15 09/30/24 12:15 09/30/24 12:15
MDM/Problems Addressed
Differential Diagnosis Includes:
Constipation benign abdominal exam no rectal impaction. Do not suspect bowel obstruction given lack of symptoms or vomiting. Patient will continue MiraLAX but will prescribe magnesium citrate for her to use at home.
*Critical Care Note
Total Time (30-74mins, 75-104mins- exclusive of procedures): Not Applicable
ED Attending Note
-
Portions of this chart may have been created with voice recognition software.� Occasional wrong word or��sound alike� substitutions may have occurred due to the inherent limitations of voice recognition software.
Discharge Plan
Departure
Patient Disposition: Home (Routine Discharge)
Date of Disposition: 09/30/24
Time of Disposition: 14:03
Patient with high blood pressure during this ER visit?: No
Discharge Problem:
Constipation
Instructions: Constipation, Adult (DC)
Prescriptions:
No Action
cranberry 500 mg Capsule
500 mg PO DAILY
methenamine hippurate 1 gram Tablet
1 g PO BID
sotalol 80 mg Tablet
80 mg PO Q12H Qty: 60 2RF
lisinopril 20 mg Tablet
20 mg PO DAILY Qty: 30 1RF
amlodipine 5 mg Tablet
5 mg PO DAILY Qty: 30 1RF
potassium chloride 20 mEq tablet extended release
40 meq PO DAILY Qty: 60 1RF
escitalopram oxalate 5 mg/5 mL Solution
5 mg PO DAILY Qty: 30 0RF
Rx Instructions:
Pt says she takes liquid, dr ramirez shows tablets
Referrals:
Avinash Ha Jr., DO [Family Provider] -
Activity Restrictions/Additional Instructions:
Stay hydrated. Use magnesium citrate as directed. Return if worse otherwise follow-up with your doctor
Interventions
Interventions:
*Risk Screen - Suicide Last Done: 09/30/24 12:15
*General Assessment Last Done: 09/30/24 12:15
*Neglect/Abuse Screening Last Done: 09/30/24 13:00
*ED- Fall Risk Assessment Last Done: 09/30/24 12:15
*ED COVID-19 Vaccine History Last Done: 09/30/24 12:15
NC-Thndfw-Dipwxoccwx Assessment Last Done: 09/30/24 13:00
Discharge Date and Time
Print Language: [place]
[2024-09-30] MEDS: CITROMA 300 ML PO (14:15)
== END 2024-09-30 14:21 | disposition home or self-care (01) ==
LOC: EMR 12:14
PROVIDERS: EMERGENCY PHYSICIAN Student in an Organized Health Care Education/Training Program; FAMILY PHYSICIAN Family Medicine
DX: K59.00 Constipation, unspecified (principal); I10 Essential (primary) hypertension; E06.3 Autoimmune thyroiditis; Z95.810 Presence of automatic (implantable) cardiac defibrillator
CPT/HCPCS: 99283

== ENCOUNTER → 2024-10-05 13:07 | Outpatient (REF) | payer MEDICARE, OTHER, SELFPAY ==
[2024-10-05 13:35] LABS: Urine Albumin Negative (Neg - Trace); Urine Bilirubin Negative (Negative); Urine Character Clear (Clear); Urine Color Yellow; Urine Glucose Negative (Negative); Urine Ketone Negative (Negative); Urine Leukocyte Negative (Negative); Urine Nitrite Negative (Negative); Urine Occult Blood Negative (Negative); Urine Urobilinogen Negative (Neg - 1+)
== END ==
LOC: REG 13:07
PROVIDERS: ATTENDING PHYSICIAN Nurse Practitioner; FAMILY PHYSICIAN Family Medicine
DX: N39.0 Urinary tract infection, site not specified (principal)
CPT/HCPCS: 81003; 87077; 87086; 87186

== ENCOUNTER 2024-11-06 09:17 | Emergency (ER) | payer MEDICARE, OTHER, SELFPAY ==
[2024-11-06 09:24] VITALS: BP 158/84
[2024-11-06 10:04] LABS: % Basophils 0.8 % (0-2); % Immature Granulocytes 0.2 % (0-0.5); % Monocytes 9.6 % (1.7-9.3); % Neutrophils 65.4 % (42.2-75.2); Absolute Eosinophils 0.2 10^3/uL (0-0.7); Absolute Monocytes 0.5 10^3/uL (0.1-0.6); Absolute Neutrophils 3.3 10^3/uL (1.4-6.5); Hemoglobin 13.9 g/dL (12.0-16.0); Mean Corp Hgb Conc. 33.9 g/dL (33.0-37.0); Mean Corpuscular Hgb 30.4 pg (27.0-31.0); Mean Corpuscular Volume 89.7 fL (81.0-99.0); Mean Platelet Volume 10.6 fL (7.4-10.4); Nucleated Red Blood Cells % 0 %; Platelet Count 137 10^3/uL (130-400); Red Blood Cell Count 4.57 10^6/uL (4.20-5.40)
[2024-11-06 10:29] LABS: ALT (SGPT) 28 U/L (0-35); AST (SGOT) 31 U/L (14-36); Albumin 4.3 g/dl (3.5-5.0); Alkaline Phosphatase 69 U/L (38-126); Blood Urea Nitrogen 16 mg/dl (7-17); Calcium 9.4 mg/dl (8.4-10.2); Carbon Dioxide 27 mmol/L (22-30); Chloride 106 mmol/L (98-107); Glucose 96 mg/dl (70-99); Lipase 93 U/L (23-300); Potassium 4.2 mmol/L (3.5-5.1); Sodium 142 mmol/L (135-145); eGFR > 60.00
--- NOTE | 2024-11-06 10:54 | ED.GENMED ---
History of Present Illness
General
Chief Complaint: Abdominal Symptoms
Source: patient
Exam Limitations: none
Time Seen by Provider: 11/06/24 10:40
History of Present Illness
History of Present Illness:
79yoF with a history of vtach s/p AICD on sotalol and hypertension presenting for evaluation of constipation. Patient has had issues with constipation for several years. She recently started a new medication, Gemtesa, for overactive bladder. She
started this medication about a month ago and over the past 3 to 4 weeks, she has been very constipated. She has tried MiraLAX and Metamucil without much improvement. She states she is able to have bowel movements but they are very small and
sliver-like. Last bowel movement was this morning. She reports cramping throughout her lower abdomen. She felt some bloating yesterday but states that is improved today. She has had some nausea but denies any vomiting. No difficulty urinating.
Patient is mainly concerned that she has some sort of blockage that is preventing her stools from coming out. No previous abdominal surgeries. She had a colonoscopy in January of 2024 which was reportedly normal.
Past History
Past History
ED Past Medical History: Arrthythmia, HTN, Other (Anemia, osteoarthritis) and Other (Cardiomyopathy, Stella's thyroiditis)
ED Past Surgical History: Cardiac (AICD)
Social History
Tobacco: Non-smoker
Alcohol: None
Drug: None
Personal:
Living: with family
Employment: Retired
Family History
Family History: Other (Mother had lung cancer)
Phy Exam
General Physical Exam
General Presentation: well appearing and no apparent distress
General age: appears stated age
General Skin: warm and dry
General Habitus: normal
General Mental: alert
ENT Exam
ENT Exam: normocephalic
Pulmonary Exam
Pulmonary Exam: no respiratory distress
Gastrointestinal Exam
Gastrointestinal Exam: normal bowel sounds, soft, non distended and other (+Mild tenderness throughout lower abdomen. Abdomen soft, non-distended. Normoactive bowel sounds.)
Neurological Exam
Neurological Exam: alert
[place] Coma Scale
Eye Opening: Spontaneous
Verbal Response: Oriented
Motor Response: Obeys Commands
GCS Total Score: 15
Skin Exam
Skin Exam: normal color and warm/dry
Psychiatric Exam
Psychiatric Exam: normal mood/affect
Course
Orders/Labs/Results
Orders:
Orders
11/06/24 09:50
Complete Blood Count/With Diff Urgent
Comprehensive Metabolic Panel Urgent
Lipase Urgent
11/06/24 10:53
CT Abd/pelvis W Iv Cont Urgent
Comment:
Reason For Exam: constipation, lower abd pain
11/06/24 13:09
Enema- Treatment ONCE
Type: Milk of Molasses
11/06/24 13:10
Lactulose [Duphalac/Chronulac] 20 grams PO ONCE ONE
Abnormal Lab Results
11/06/24
09:50
MPV 10.6 H fL
(7.4-10.4)
Absolute Lymphs (auto) 1.0 L 10^3/uL
(1.2-3.4)
Lymphocytes % 20.0 L %
(20.5-51.1)
Monocytes % 9.6 H %
(1.7-9.3)
11/06/24 09:50
11/06/24 09:50
Vital Signs
Initial and Last Documented VS:
Initial Vital Signs
Temp Pulse Resp BP Pulse Ox
97.7 F 58 20 158/84 98
11/06/24 09:24 11/06/24 09:24 11/06/24 09:24 11/06/24 09:24 11/06/24 09:24
Last Documented Vital Signs
Temp Pulse Resp BP Pulse Ox
97.7 F 64 18 146/74 98
11/06/24 09:24 11/06/24 12:16 11/06/24 12:16 11/06/24 12:16 11/06/24 12:16
MDM/Problems Addressed
Differential Diagnosis Includes:
79yoF here with constipation. Ongoing issue. Worsening x 3-4 weeks since starting Gemtesa. C/o lower abd cramping. Using Miralax and Metamucil. VSS. She is well appearing in no distress. Abdomen soft, non-distended without signs of peritonitis.
Differential diagnosis includes but is not limited to: constipation, medication side effect, fecal impaction, diverticulitis
Initial ED plan: Abdominal labs obtained in triage which are unremarkable. CT abdomen ordered.
*Critical Care Note
Total Time (30-74mins, 75-104mins- exclusive of procedures): Not Applicable
Update Note
Update Note:
CT shows large amount of fecal material in the proximal colon. Patient was given a milk of molasses enema and was able to have a large bowel movement. She is stable for discharge. Supportive care discussed including increased fluid/fiber intake
and MiraLAX. Prescription was provided for lactulose to use if these interventions do not work. She was advised to follow-up with her PCP. She did call to schedule follow-up with her [facility] but was unable to get an appointment until
March. ED return precautions reviewed. Patient in agreement with plan and was discharged in stable condition.
ED Attending Note
-
Portions of this chart may have been created with voice recognition software.� Occasional wrong word or��sound alike� substitutions may have occurred due to the inherent limitations of voice recognition software.
Discharge Plan
Departure
Patient Disposition: Home (Routine Discharge)
Date of Disposition: 11/06/24
Time of Disposition: 14:22
Patient with high blood pressure during this ER visit?: Yes
Discharge Problem:
Constipation
Instructions: Constipation, Adult (DC)
Prescriptions:
New
lactulose 10 gram/15 mL solution
20 g PO BID PRN (Reason: Constipation) Qty: 300 0RF
No Action
cranberry 500 mg Capsule
500 mg PO DAILY
methenamine hippurate 1 gram Tablet
1 g PO BID
sotalol 80 mg Tablet
80 mg PO Q12H Qty: 60 2RF
lisinopril 20 mg Tablet
20 mg PO DAILY Qty: 30 1RF
amlodipine 5 mg Tablet
5 mg PO DAILY Qty: 30 1RF
potassium chloride 20 mEq tablet extended release
40 meq PO DAILY Qty: 60 1RF
escitalopram oxalate 5 mg/5 mL Solution
5 mg PO DAILY Qty: 30 0RF
Rx Instructions:
Pt says she takes liquid, dr first shows tablets
Referrals:
Avinash Ha Jr., DO [Family Provider] -
Activity Restrictions/Additional Instructions:
Increase your fluid and fiber intake. Take Miralax daily as needed. Take lactulose if no improvement with over the counter medications.
Please follow-up with your family doctor. Return to the ER with any worsening symptoms.
Interventions
Interventions:
*Risk Screen - Suicide Last Done: 11/06/24 09:24
*General Assessment Last Done: 11/06/24 09:24
*Neglect/Abuse Screening Last Done: 11/06/24 09:24
*ED- Fall Risk Assessment Last Done: 11/06/24 11:06
*ED COVID-19 Vaccine History Last Done: 11/06/24 11:06
*Nursing Disposition Last Done: 11/06/24 15:03
CR-Aqidvp-Shmdbjajmh Assessment Last Done: 11/06/24 11:06
Discharge Date and Time
Discharge Date/Time: 11/06/24 15:04
Print Language: AMHARIC
[2024-11-06 11:06] VITALS: BMI 26.3
[2024-11-06 11:08] VITALS: BP 134/75
[2024-11-06 12:16] VITALS: BP 146/74
[2024-11-06] MEDS: DUPHALAC/CHRONULAC 20 GRAMS PO (14:44)
== END 2024-11-06 15:04 | disposition home or self-care (01) ==
LOC: EMR 09:17
PROVIDERS: Emergency Medicine; EMERGENCY PHYSICIAN Emergency Medicine; FAMILY PHYSICIAN Family Medicine
DX: K59.00 Constipation, unspecified (principal); I11.9 Hypertensive heart disease without heart failure; E06.3 Autoimmune thyroiditis; M19.90 Unspecified osteoarthritis, unspecified site; N32.81 Overactive bladder; Z80.1 Family history of malignant neoplasm of trachea, bronchus and lung; Z95.810 Presence of automatic (implantable) cardiac defibrillator
CPT/HCPCS: 99284; 74177; 80053; 83690; 85025; Q9967

== ENCOUNTER → 2024-11-19 15:33 | Outpatient (REF) | payer MEDICARE, OTHER, SELFPAY ==
[2024-11-19 16:49] LABS: % Basophils 0.8 % (0-2); % Eosinophils 4.1 % (0-6); % Immature Granulocytes 0.3 % (0-0.5); % Lymphocytes 21.1 % (20.5-51.1); % Monocytes 10.3 % (1.7-9.3); % Neutrophils 63.4 % (42.2-75.2); Absolute Basophils 0.1 10^3/uL (0-0.2); Absolute Eosinophils 0.3 10^3/uL (0-0.7); Absolute Lymphocytes 1.3 10^3/uL (1.2-3.4); Absolute Monocytes 0.6 10^3/uL (0.1-0.6); Absolute Neutrophils 3.9 10^3/uL (1.4-6.5); Hematocrit 40.8 % (37.0-47.0); Hemoglobin 13.5 g/dL (12.0-16.0); Mean Corp Hgb Conc. 33.1 g/dL (33.0-37.0); Mean Corpuscular Hgb 29.9 pg (27.0-31.0); Mean Corpuscular Volume 90.3 fL (81.0-99.0); Nucleated Red Blood Cells % 0 %; Platelet Count 142 10^3/uL (130-400); Red Blood Cell Count 4.52 10^6/uL (4.20-5.40); Red Cell Dist. Width 13.1 % (11.5-14.5); White Blood Cell Count 6.1 10^3/uL (4.8-10.8)
[2024-11-19 16:58] LABS: ALT (SGPT) 25 U/L (0-35); AST (SGOT) 26 U/L (14-36); Albumin 4.3 g/dl (3.5-5.0); Alkaline Phosphatase 61 U/L (38-126); Blood Urea Nitrogen 20 mg/dl (7-17); Calcium 9.6 mg/dl (8.4-10.2); Carbon Dioxide 26 mmol/L (22-30); Chloride 110 mmol/L (98-107); Glucose 117 mg/dl (70-99); Potassium 4.5 mmol/L (3.5-5.1); Sodium 142 mmol/L (135-145); Total Bilirubin 0.9 mg/dl (0.2-1.3); Total Protein 6.8 g/dl (6.3-8.2); eGFR > 60.00
== END ==
LOC: REG 15:33
PROVIDERS: ATTENDING PHYSICIAN Nurse Practitioner Adult Health; FAMILY PHYSICIAN Family Medicine
DX: R42 Dizziness and giddiness (principal)
CPT/HCPCS: 36415; 80053; 85025

== ENCOUNTER → 2024-12-31 11:19 | Outpatient (REF) | payer MEDICARE, OTHER, SELFPAY ==
[2024-12-31 12:21] LABS: % Basophils 1.3 % (0-2); % Eosinophils 3.6 % (0-6); % Immature Granulocytes 0.2 % (0-0.5); % Monocytes 9.9 % (1.7-9.3); Absolute Basophils 0.1 10^3/uL (0-0.2); Absolute Eosinophils 0.2 10^3/uL (0-0.7); Absolute Lymphocytes 1.1 10^3/uL (1.2-3.4); Absolute Monocytes 0.5 10^3/uL (0.1-0.6); Absolute Neutrophils 3.4 10^3/uL (1.4-6.5); Hematocrit 40.3 % (37.0-47.0); Hemoglobin 13.7 g/dL (12.0-16.0); Mean Corpuscular Hgb 30.5 pg (27.0-31.0); Mean Corpuscular Volume 89.8 fL (81.0-99.0); Nucleated Red Blood Cells % 0 %; Platelet Count 130 10^3/uL (130-400); Red Blood Cell Count 4.49 10^6/uL (4.20-5.40); Red Cell Dist. Width 13.1 % (11.5-14.5); White Blood Cell Count 5.3 10^3/uL (4.8-10.8)
[2024-12-31 12:58] LABS: ALT (SGPT) 31 U/L (0-35); AST (SGOT) 33 U/L (14-36); Albumin 4.4 g/dl (3.5-5.0); Alkaline Phosphatase 65 U/L (38-126); Blood Urea Nitrogen 18 mg/dl (7-17); Calcium 9.5 mg/dl (8.4-10.2); Carbon Dioxide 27 mmol/L (22-30); Chloride 107 mmol/L (98-107); Glucose 89 mg/dl (70-99); HDL Cholesterol 67 mg/dl; LDL Cholesterol, Calculated 147 mg/dl; Potassium 4.2 mmol/L (3.5-5.1); Sodium 139 mmol/L (135-145); Total Bilirubin 1.1 mg/dl (0.2-1.3); Total Cholesterol 239 mg/dl (50-199); Total Protein 7.1 g/dl (6.3-8.2); Triglyceride 128 mg/dl (10-149); Very Low Density Lipoprotein 25 mg/dl (0-30); eGFR > 60.00
[2024-12-31 13:18] LABS: Vitamin D, 25-OH*** 39.1 ng/mL (30-80)
[2024-12-31 13:32] LABS: TSH Reflex To Free T4 2.16 uIU/ml (0.47-4.68)
[2024-12-31 13:36] LABS: Rheumatoid Agglutinin Less Than 10 IU (<10 IU)
[2024-12-31 13:51] LABS: Vitamin B12 617 pg/ml (239-931)
[2025-01-03 02:29] LABS: ANA, IgG Reflex to HEp-2 Detected (None Detected)
[2025-01-03 09:42] LABS: Homocysteine 7 umol/L (0-15)
[2025-01-03 13:07] LABS: 24 Hour Urine Total Volume Random mL; Urine Collection Length Random hr; Urine Free Kappa Light Chains 39.01 mg/L (0.00-32.90); Urine Free Lambda Light Chains 10.67 mg/L (0.00-3.79)
[2025-01-04 08:39] LABS: ANA, HEp-2, IgG Detected (<1:80)
== END ==
LOC: REG 11:19
PROVIDERS: ATTENDING PHYSICIAN Psychiatry & Neurology Neurology; FAMILY PHYSICIAN Family Medicine
DX: Z13.1 Encounter for screening for diabetes mellitus (principal); E78.5 Hyperlipidemia, unspecified; R53.83 Other fatigue; Z13.29 Encounter for screening for other suspected endocrine disorder; E55.9 Vitamin D deficiency, unspecified; E53.8 Deficiency of other specified B group vitamins; G62.9 Polyneuropathy, unspecified; R20.2 Paresthesia of skin; D51.9 Vitamin B12 deficiency anemia, unspecified; D68.62 Lupus anticoagulant syndrome
CPT/HCPCS: 36415; 80053; 80061; 82306; 82607; 82746; 82784; 83090; 83520; 83521; 83921; 84155; 84156; 84165; 84443; 85025; 86038; 86334; 86335; 86430; 86618

== ENCOUNTER 2025-01-23 10:19 | Emergency (ER) | payer MEDICARE, OTHER, SELFPAY ==
[2025-01-23 10:33] VITALS: BP 151/77
[2025-01-23 10:33] LABS: Glucose - Point of Care 127 mg/dl (70-99)
[2025-01-23 11:06] LABS: Urine Character Clear (Clear)
[2025-01-23 11:09] LABS: Hematocrit 39.0 % (37.0-47.0); Hemoglobin 13.1 g/dL (12.0-16.0); Mean Corp Hgb Conc. 33.6 g/dL (33.0-37.0); Mean Corpuscular Volume 90.7 fL (81.0-99.0); Nucleated Red Blood Cells % 0 %; Platelet Count 141 10^3/uL (130-400); Red Cell Dist. Width 13.0 % (11.5-14.5)
[2025-01-23 11:20] LABS: ALT (SGPT) 26 U/L (0-35); AST (SGOT) 27 U/L (14-36); Albumin 4.0 g/dl (3.5-5.0); Alkaline Phosphatase 54 U/L (38-126); Blood Urea Nitrogen 12 mg/dl (7-17); Calcium 9.5 mg/dl (8.4-10.2); Carbon Dioxide 29 mmol/L (22-30); Chloride 107 mmol/L (98-107); Glucose 92 mg/dl (70-99); Potassium 3.6 mmol/L (3.5-5.1); Sodium 138 mmol/L (135-145); Total Protein 6.7 g/dl (6.3-8.2); eGFR > 60.00
[2025-01-23 13:50] VITALS: BP 157/75
[2025-01-23 13:51] VITALS: BP 160/90
[2025-01-23 13:53] VITALS: BP 164/95
[2025-01-23 13:56] VITALS: BP 157/75; BP 160/90; BP 169/95; PULSE 60; PULSE 67; PULSE 68
[2025-01-23 14:00] VITALS: BP 166/85
--- NOTE | 2025-01-23 14:25 | ED.GENMED ---
History of Present Illness
<Negin Muñoz DO - Last Filed: 01/24/25 06:05>
General
Chief Complaint: Weakness
Time Seen by Provider: 01/23/25 13:15
History of Present Illness
History of Present Illness:
80-year-old female with history of hypertension, CHF, COPD presenting to the emergency department for concern of dehydration. Patient reports the past few days she has been feeling generally unwell. Yesterday she felt very weak and fatigued,
lightheaded. She also had some diarrhea. Notes that she has been having the symptoms on and off for the past week with unremarkable workup, unclear what her symptoms are. She notes that 2 days ago she had an episode where she felt a thumping in
her chest, does have a pacemaker, went to cardiology and had her device interrogated with no acute events. Also notes that she has chronic blurred vision, is due to get corneal transplants. She recently followed up with the eye doctor. She denies
any spinning sensation, notes that she has seen In the past, noted to have no signs of vertigo. Denies any recent fever or sick contacts. Denies chest pain or difficulty breathing. She continues to express that she does not 'feel right', and
her head feels 'off '. Denies any recent fall or trauma. Denies additional acute medical complaints
Past History
<Negin Muñoz DO - Last Filed: 01/24/25 06:05>
Past History
ED Past Medical History: Arrthythmia, HTN, Other (Anemia, osteoarthritis) and Other (Cardiomyopathy, Stella's thyroiditis)
ED Past Surgical History: Cardiac (AICD)
Social History
Tobacco: Non-smoker
Alcohol: None
Drug: None
Personal:
Living: with family
Employment: Retired
Family History
Family History: Other (Mother had lung cancer)
Phy Exam
<Negin Muñoz DO - Last Filed: 01/24/25 06:05>
Physical Exam
Physical Exam:
General: Well-appearing, no clinical signs of dehydration, nontoxic and in no acute distress
HEENT: protecting airway
Neck: appears supple
CV: Normal heart rate, regular rhythm
Resp: No accessory muscle use, no increased work of breathing, lungs clear to auscultation bilaterally
Abd: Soft and non-distended, no tenderness to palpation
Extremities: No deformities, no swelling
Neuro: alert, no focal neurologic deficit
: deferred
Rectal: deferred
Psych: Normal affect
Skin: Intact
Course
<Negin Muñoz, DO - Last Filed: 01/24/25 06:05>
Orders/Labs/Results
Orders:
Orders
01/23/25 10:34
Electrocardiogram (*1) Urgent
Reason for Study: Fatigue / Weakness
EKG- Treatment ONCE
01/23/25 10:53
CMP [Comprehensive Metabolic Panel] Urgent
Complete Blood Count/With Diff Urgent
Urinalysis Reflex To Culture Urgent
Date Specimen was Collected: 01/23/25
Time Specimen was Collected: 10:34
01/23/25 13:34
CT Head W/o Iv Contrast Urgent
Comment:
Reason For Exam: generally weak, headache
Orthostatic VS- Treatment ONCE
Abnormal Lab Results
01/23/25 01/23/25
10:31 10:53
MPV 10.7 H fL
(7.4-10.4)
Immature Gran % 0.6 H %
(0-0.5)
Monocytes % 10.0 H %
(1.7-9.3)
POC Glucose 127 H mg/dl
(70-99)
01/23/25 10:53
01/23/25 10:53
Vital Signs
Initial and Last Documented VS:
Initial Vital Signs
Temp Pulse Resp BP Pulse Ox
97.8 F 60 18 151/77 100
01/23/25 10:33 01/23/25 10:33 01/23/25 10:33 01/23/25 10:33 01/23/25 10:33
Last Documented Vital Signs
Temp Pulse Resp BP Pulse Ox
97.8 F 64 32 166/85 99
01/23/25 10:33 01/23/25 14:15 01/23/25 14:15 01/23/25 14:00 01/23/25 14:45
<Catalino López MD - Last Filed: 01/23/25 16:49>
Orders/Labs/Results
Orders:
Orders
01/23/25 10:34
Electrocardiogram (*1) Urgent
Reason for Study: Fatigue / Weakness
EKG- Treatment ONCE
01/23/25 10:53
CMP [Comprehensive Metabolic Panel] Urgent
Complete Blood Count/With Diff Urgent
Urinalysis Reflex To Culture Urgent
Date Specimen was Collected: 01/23/25
Time Specimen was Collected: 10:34
01/23/25 13:34
CT Head W/o Iv Contrast Urgent
Comment:
Reason For Exam: generally weak, headache
Orthostatic VS- Treatment ONCE
Abnormal Lab Results
01/23/25 01/23/25
10:31 10:53
MPV 10.7 H fL
(7.4-10.4)
Immature Gran % 0.6 H %
(0-0.5)
Monocytes % 10.0 H %
(1.7-9.3)
POC Glucose 127 H mg/dl
(70-99)
01/23/25 10:53
01/23/25 10:53
Vital Signs
Initial and Last Documented VS:
Initial Vital Signs
Temp Pulse Resp BP Pulse Ox
97.8 F 60 18 151/77 100
01/23/25 10:33 01/23/25 10:33 01/23/25 10:33 01/23/25 10:33 01/23/25 10:33
Last Documented Vital Signs
Temp Pulse Resp BP Pulse Ox
97.8 F 64 32 166/85 99
01/23/25 10:33 01/23/25 14:15 01/23/25 14:15 01/23/25 14:00 01/23/25 14:45
<Negin Muñoz DO - Last Filed: 01/24/25 06:05>
MDM/Problems Addressed
MDM/Problems Addressed:
80-year-old female with history of hypertension, CHF, COPD presenting to the emergency department for lightheadedness and concern for dehydration.
Vital signs on arrival are normal. On exam patient is resting comfortably, no acute discomfort. Patient is afebrile, nontoxic. Unremarkable cardiac and pulmonary exam. EKG obtained on arrival, right bundle branch block without change from prior.
No focal neurologic deficits on exam with lower suspicion for central neurologic process. Patient afebrile, nontoxic without concern for systemic infection. Patient without any vertiginous symptoms. No clinical signs of dehydration. Laboratory
analysis of obtained prior to my assessment, normal blood counts, normal electrolyte panel. Without present concern for acute dehydration. Patient notes that she had her device interrogated 2 days ago, no acute events, without present concern for
cardiac pathology. Patient continues to explain that her head does not feel right. Orthostatics are negative. She is unable to get MRI secondary to the old leads in her defibrillator. Will proceed with CT brain imaging
<Negin Muñoz DO - Last Filed: 01/24/25 06:05>
*Pulse Oximetry
SaO2: 100
Oxygen Mode of Delivery: Room air
Patient hypoxic: no
*EKG
Interpreted by ED Provider?: Yes
EKG Intrepretation Date: 01/23/25
EKG Intrepretation Time: 14:38
Interpretation: normal
Comparison EKG: no changes (08/19/24)
Rate: normal
Rhythm: sinus
[place]: normal axis
Interval: normal interval
QRS Pattern: right bundle branch block
Ischemia: no ischemia
*Critical Care Note
Total Time (30-74mins, 75-104mins- exclusive of procedures): Not Applicable
<Catalino López MD - Last Filed: 01/23/25 16:49>
Update Note
Update Note:
UPDATE (Catalino López MD)
I have seen and evaluated the patient after signout and reviewed all labs and imaging.
Focused HPI: 80-year-old female with history as noted presents to the ER for evaluation of generalized weakness and lightheadedness. It sounds at this has been a chronic ongoing issue she has been seen for dehydration multiple times. She feels
symptoms have been a bit worse since last night. She adamantly denies vertiginous symptoms. Denies focal weakness. 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 Came to the ER for assessment.
Physical exam: Mildly hypertensive otherwise stable vital signs. No gross cranial nerve deficits. Motor and sensory grossly intact in all extremities.
Medical Decision Makin-year-old female presents with generalized weakness and lightheadedness. Workup here has thus far been nondiagnostic with reassuring CBC and CMP, bland urinalysis. Her EKG shows sinus rhythm with occasional PVC and paced
beats. She apparently had device interrogation 2 days ago by coiler which was reassuring. She is currently pending CT head.
CT head shows age-related changes but no acute abnormalities. Patient has been clinically stable. I long discussion with patient and about follow-up plans�recommended following up with a neurologist. Provided copy of CT for review. All
questions answered.
ED Attending Note
<Negin Muñoz DO - Last Filed: 01/24/25 06:05>
-
Portions of this chart may have been created with voice recognition software.� Occasional wrong word or��sound alike� substitutions may have occurred due to the inherent limitations of voice recognition software.
Discharge Plan
Departure
Patient Disposition: Home (Routine Discharge)
Date of Disposition: 01/23/25
Time of Disposition: 16:49
Patient with high blood pressure during this ER visit?: No
Condition: Good
Discharge Problem:
Lightheadedness, Generalized weakness
Instructions: Generalized Weakness (DC)
Prescriptions:
No Action
cranberry 500 mg Capsule
500 mg PO DAILY
methenamine hippurate 1 gram Tablet
1 g PO BID
sotalol 80 mg Tablet
80 mg PO Q12H Qty: 60 2RF
lisinopril 20 mg Tablet
20 mg PO DAILY Qty: 30 1RF
amlodipine 5 mg Tablet
5 mg PO DAILY Qty: 30 1RF
potassium chloride 20 mEq tablet extended release
40 meq PO DAILY Qty: 60 1RF
lactulose 10 gram/15 mL solution
20 g PO BID PRN (Reason: Constipation) Qty: 300 0RF
escitalopram oxalate 5 mg/5 mL Solution
5 mg PO DAILY Qty: 30 0RF
Rx Instructions:
Pt says she takes liquid, dr ramirez shows tablets
Referrals:
Avinash Ha Jr., DO [Family Provider, Internal Medicine]
Activity Restrictions/Additional Instructions:
You were seen in the emergency department for generalized weakness
You were found to have reassuring laboratory analysis, vital signs, CT imaging of your brain.
Please follow-up closely with your primary care physician. You should also make an appointment with your neurologist.
Return to the emergency department for any worsening of your symptoms, or any development of chest pain, difficulty breathing, abdominal pain with persistent vomiting and inability to tolerate food or liquid by mouth (concern for dehydration),
weakness, headache or confusion, fever greater than 100.4, or any additional symptoms that are concerning to you.
Thank you for choosing [facility].
Interventions
Interventions:
*Risk Screen - Suicide Last Done: 01/23/25 10:33
*General Assessment Last Done: 01/23/25 10:33
*Neglect/Abuse Screening Last Done: 01/23/25 17:04
*ED- Fall Risk Assessment Last Done: 01/23/25 17:04
*ED COVID-19 Vaccine History Last Done: 01/23/25 17:04
*Nursing Disposition Last Done: 01/23/25 17:04
ED- Cardiac Assessment Last Done: 01/23/25 17:04
ED- Neurological Assessment Last Done: 01/23/25 15:21
ED- Pulmonary Assessment Last Done: 01/23/25 17:04
Discharge Date and Time
Discharge Date/Time: 01/23/25 17:05
Print Language: MONTENEGRIN
== END 2025-01-23 17:05 | disposition home or self-care (01) ==
LOC: EMR 10:19
PROVIDERS: EMERGENCY PHYSICIAN Student in an Organized Health Care Education/Training Program; FAMILY PHYSICIAN Family Medicine
DX: I11.0 Hypertensive heart disease with heart failure (principal); I50.9 Heart failure, unspecified; R53.1 Weakness; R42 Dizziness and giddiness; J44.9 Chronic obstructive pulmonary disease, unspecified
CPT/HCPCS: 99285; 70450; 80053; 81003; 82962; 85025; 93005

== ENCOUNTER → 2025-01-25 12:57 | Outpatient (REF) | payer MEDICARE, OTHER, SELFPAY ==
[2025-01-25 14:52] LABS: ALT (SGPT) 26 U/L (0-35); AST (SGOT) 26 U/L (14-36); Albumin 3.9 g/dl (3.5-5.0); Alkaline Phosphatase 60 U/L (38-126); Blood Urea Nitrogen 17 mg/dl (7-17); Calcium 9.2 mg/dl (8.4-10.2); Carbon Dioxide 28 mmol/L (22-30); Chloride 110 mmol/L (98-107); Glucose 83 mg/dl (70-99); Magnesium 2.1 mg/dl (1.6-2.3); Potassium 4.4 mmol/L (3.5-5.1); Sodium 138 mmol/L (135-145); Total Protein 6.3 g/dl (6.3-8.2); eGFR > 60.00
== END ==
LOC: REG 12:57
PROVIDERS: ATTENDING PHYSICIAN Nurse Practitioner; FAMILY PHYSICIAN Family Medicine
DX: E87.6 Hypokalemia (principal)
CPT/HCPCS: 36415; 80053; 83735

== ENCOUNTER → 2025-01-28 14:12 | Outpatient (REF) | payer MEDICARE, OTHER, SELFPAY | LOC: RCS 14:12 | PROVIDERS: ATTENDING PHYSICIAN Nurse Practitioner; FAMILY PHYSICIAN Family Medicine | DX: I34.0 Nonrheumatic mitral (valve) insufficiency (principal) | CPT/HCPCS: 93306 ==

== ENCOUNTER → 2025-05-04 09:38 | Outpatient (REF) | payer MEDICARE, OTHER, SELFPAY ==
[2025-05-04 10:58] LABS: Urine Character Clear (Clear)
[2025-05-04 12:46] LABS: Urine Red Blood Cell 0-2 /HPF (0-2)
== END ==
LOC: REG 09:38
PROVIDERS: ATTENDING PHYSICIAN Nurse Practitioner; FAMILY PHYSICIAN Family Medicine
DX: N39.0 Urinary tract infection, site not specified (principal)
CPT/HCPCS: 81003; 81015; 87077; 87086; 87186

== ENCOUNTER → 2025-05-19 15:12 | Outpatient (REF) | payer MEDICARE, OTHER, SELFPAY ==
[2025-05-19 16:15] LABS: Urine Character Slightly Cloudy (Clear)
[2025-05-19 17:42] LABS: Urine Squamous Cell >30 /LPF (Few)
[2025-05-19 17:43] LABS: Urine White Cell 80-90 /HPF (0-5)
== END ==
LOC: REG 15:12
PROVIDERS: ATTENDING PHYSICIAN Nurse Practitioner; FAMILY PHYSICIAN Family Medicine
DX: N39.0 Urinary tract infection, site not specified (principal)
CPT/HCPCS: 81003; 81015; 87086